=== PATIENT | male | born 1955 | race Caucasian/White ===

== ENCOUNTER 2017-01-22 01:43 | Emergency (ER) | payer OTHER ==
[~2017-01-22] VITALS: Ht 165.1 cm; Wt 74.5 kg
[~2017-01-22 01:43] MED LIST: HYDR-906 PO; LEVO750T25 PO
[2017-01-22 02:05] VITALS: Ht 165.1 cm; Wt 74.5 kg
[2017-01-22] MEDS ORDERED: morphine 4 MG/ML VIAL IV STA (04:36)
[2017-01-22] MEDS ORDERED: SOD CHLORIDE 0.9% 500 ML IV STA (04:36)
[2017-01-22] MEDS ORDERED: ONDANSETRON 4 MG INJ IV STA (04:36)
[2017-01-22 04:46] LABS: ADD SCAN DIFF NO
[2017-01-22 04:52] LABS: BASOPHIL # 0.1 10^3/ul (0.0-0.1); BASOPHILS % 0.7 % (0.0-2.0); EOSINOPHILS # 0.1 10^3/ul (0.0-0.5); EOSINOPHILS % 1.4 % (0.0-7.0); HEMATOCRIT 43.4 % (42.0-52.0); HEMOGLOBIN 14.8 g/dl (14.0-18.0); LYMPHOCYTES # 2.2 10^3/ul (0.8-2.9); LYMPHOCYTES % 26.1 % (15.0-51.0); MEAN CORPUSCULAR HEMOGLOBIN 30.4 pg (29.0-33.0); MEAN CORPUSCULAR HGB CONC 34.1 g/dl (32.0-37.0); MEAN CORPUSCULAR VOLUME 89.1 fl (82.0-101.0); MEAN PLATELET VOLUME 11.2 fl (7.4-10.4); MONOCYTE # 0.7 10^3/ul (0.3-0.9); MONOCYTES % 7.8 % (0.0-11.0); NEUTROPHIL # 5.5 10^3/ul (1.6-7.5); NEUTROPHILS % 63.6 % (39.0-77.0); PLATELET COUNT 188 10^3/UL (140-415); RED BLOOD COUNT 4.87 10^6/ul (4.70-6.10); RED CELL DISTRIBUTION WIDTH 12.2 % (11.5-14.5); WHITE BLOOD COUNT 8.6 10^3/ul (4.8-10.8)
[2017-01-22 05:07] LABS: ALBUMIN 4.1 g/dl (3.3-4.9); POTASSIUM 4.2 mmol/L (3.5-5.1)
[2017-01-22 05:10] LABS: ALBUMIN/GLOBULIN RATIO 1.2; BILIRUBIN,INDIRECT 0.3 mg/dl (0-1.1); BILIRUBIN,TOTAL 0.3 mg/dl (0.2-1.3); CALCIUM 9.4 mg/dl (8.4-10.2); CREATININE 0.85 mg/dl (0.61-1.24); TOTAL PROTEIN 7.5 g/dl (6.1-8.1)
[2017-01-22] MEDS ORDERED: ONDA4TAB14 PO (05:57)
[2017-01-22] MEDS ORDERED: TRAM50TA2 PO (05:57)
--- NOTE | 2017-01-22 05:57 | ERD ---
ER Documentation Chief Complaint Date/Time DATE: 01/22/17 TIME: 05:56 Chief Complaint SEVERE ABDOMINAL PAIN WITHOUT N/V/D X 2 HOURS HPI 61-year-old with severe abdominal pain without nausea or diarrhea the past 2 hours. Patient has history of gallstones. No fevers no chills. No other current complaints. Pain is mild to moderate in intensity. ROS All systems reviewed and are negative except as per history of present illness. Medications Home Meds Active Scripts Hydrocodone/Acetaminophen ([place] 5-325 Tablet) 1 Each Tablet, 1 TAB PO Q6H Y for PAIN, #7 TAB Prov:NGUYEN SWEET 10/26/16 Levofloxacin* (Levaquin*) 750 Mg Tablet, 750 MG PO DAILY for 5 Days, TAB Prov:MICKIHANNAHNGUYEN 10/26/16 Allergies Allergies: Coded Allergies: No Known Allergy (Unverified , 10/26/16) PMhx/Soc History of Surgery: No Hx Neurological Disorder: No Hx Respiratory Disorders: No Hx Cardiac Disorders: No Hx Psychiatric Problems: No Hx Miscellaneous Medical Probl: No Hx Alcohol Use: No Hx Substance Use: No Hx Tobacco Use: No Smoking Status: Never smoker Physical Exam Vitals Vital Signs Date Time Temp Pulse Resp B/P Pulse Ox O2 Delivery O2 Flow Rate FiO2 01/22/17 04:36 97.9 65 12 156/68 96 Room Air 01/22/17 02:05 97.9 77 20 169/80 95 Physical Exam Const: [] Head: Atraumatic Eyes: Normal Conjunctiva ENT: Normal External Ears, Nose and Mouth. Neck: Full range of motion..~ No meningismus. Resp: Clear to auscultation bilaterally Cardio: Regular rate and rhythm, no murmurs Abd: Soft, non tender, non distended. Normal bowel sounds Skin: No petechiae or rashes Back: No midline or flank tenderness Ext: No cyanosis, or edema Neur: Awake and alert Psych: Normal Mood and Affect Result Diagram: 01/22/1742901/22/17429 Results 24 hrs Laboratory Tests Test 01/22/17 04:30 Alanine Aminotransferase (ALT/SGPT) 35IU/L Albumin 4.1g/dl Albumin/Globulin Ratio 1.20 Alkaline Phosphatase 77IU/L Anion Gap 16 Aspartate Amino Transf (AST/SGOT) 50IU/L Basophils # 0.110^3/ul Basophils % 0.7% Blood Urea Nitrogen 22mg/dl Calcium Level 9.4mg/dl Carbon Dioxide Level 28mmol/L Chloride Level 105mmol/L Creatinine 0.85mg/dl Direct Bilirubin 0.00mg/dl Eosinophils # 0.110^3/ul Eosinophils % 1.4% Globulin 3.40g/dl Glucose Level 130mg/dl Hematocrit 43.4% Hemoglobin 14.8g/dl Indirect Bilirubin 0.3mg/dl Lipase 65U/L Lymphocytes # 2.210^3/ul Lymphocytes % 26.1% Mean Corpuscular Hemoglobin 30.4pg Mean Corpuscular Hemoglobin Concent 34.1g/dl Mean Corpuscular Volume 89.1fl Mean Platelet Volume 11.2fl Monocytes # 0.710^3/ul Monocytes % 7.8% Neutrophils # 5.510^3/ul Neutrophils % 63.6% Nucleated Red Blood Cells # 0.010^3/ul Nucleated Red Blood Cells % 0.0/100WBC Platelet Count 71941^3/UL Potassium Level 4.2mmol/L Red Blood Count 4.8710^6/ul Red Cell Distribution Width 12.2% Sodium Level 145mmol/L Total Bilirubin 0.3mg/dl Total Protein 7.5g/dl White Blood Count 8.610^3/ul Current Medications Medications (Trade) Dose Ordered Sig/Anna Route PRN Reason Start Time Stop Time Status Last Admin Dose Admin Sodium Chloride (NS) 500 ml @ 500 mls/hr Q1H STAT IV 01/22/17 04:36 01/22/17 05:35 DC 01/22/17 04:47 Morphine Sulfate (morphine) 4 mg ONCE STAT IV 01/22/17 04:36 01/22/17 04:38 DC 01/22/17 04:47 Ondansetron HCl (Zofran Inj) 4 mg ONCE STAT IV 01/22/17 04:36 01/22/17 04:38 DC 01/22/17 04:47 Procedures/MDM CBC: [no e/o of systemic infection or severe anemia] CMP: [no e/o severe acidosis, alkalosis, renal failure, diabetic ketoacidosis, liver disease] Lipase: [no e/o pancreatitis] PT/INR: [normal coagulation] Urine: [no e/o acute infection or hematuria] Medical decision-making: Patient comes in with abdominal pain nonspecific etiology. He does have evidence of gallstones. At this point is clinically stable. He will be discharged home with tramadol and Zofran. Follow-up in 8 hours for serial abdominal exams. Departure Diagnosis: Primary Impression: Abdominal pain Abdominal location: epigastric Qualified Code: R10.13 - Epigastric pain Condition: Stable STEFANY VAZQUEZ Jan 22, 2017 05:57
--- NOTE | 2017-01-22 05:58 | RADRPT ---
PROCEDURE: CT ABDOMEN/PELVIS WITHOUT CONTRAST CLINICAL INDICATION: 61-year-old male with abdominal pain. TECHNIQUE: The study was performed utilizing a GE [employer] VCT 64-slice CT scanner. Direct axia l sections were obtained through the abdomen and pelvis without the use of intravenous contrast mate rial. Sagittal and coronal reformations were obtained. Automated exposure control and iterative graham nstruction techniques were utilized for this examination. The images were reviewed [facility]. CTD/vol = 11.9 mGy; Total Exam DLP = 749.2 mGy-cm. COMPARISON: CT abdomen/pelvis October 26, 2016. FINDINGS: There is mild linear subsegmental atelectasis within the lung bases. There is a small bleb identifi ed within the right lung base measuring 9 x 8 mm on axial image 3-41. There is no evidence for sign ificant pleural effusion. The liver has a normal size and contour without focal areas of abnormal d ensity. No intrahepatic nor extrahepatic biliary ductal dilatation is seen. The gallbladder is diste nded but without evidence for calcified stones, significant wall thickening or pericholecystic fluid .. The pancreas is without areas of abnormal attenuation. The spleen is identified and has a normal size without abnormal density. The adrenal glands are unremarkable. The kidneys are without abnorma l density. No hydroureteronephrosis nor nephroureterolithiasis is evident. The urinary bladder conta ins urine. The stomach is distended with fluid. There are dilated fluid-filled loops of proximal sm all bowel with decompressed distal small bowel however there is mild fecalization. There is mild retained stool identified within the colon without obstruction. Multiple diverticula seen throughou t the colon most prominently within the descending and colon without surrounding inflammatory change s. The appendix is visualized and is without abnormal thickening or surrounding inflammatory reacti on. The prostate is mildly enlarged measuring approximately 4.6 x 4.2 x 4.5 cm. There is a nonspecif ic inferior pelvic calcific density measuring approximately 10 x16 x 14 mm without interval change. There is a small left inguinal hernia containing fat. There is no significant pelvic free fluid. Th e aortoiliac vessels are mildly calcified but without aneurysmal dilatation. Mild degenerative cardenas es are seen throughout the spine. IMPRESSION: 1. Mild linear bibasilar subsegmental atelectasis. 2. Distended stomach and mildly dilated fluid-filled loops of proximal small bowel. This may repre sent a gastroenteritis. Other possibilities include transient small bowel intussusception. 3. Mild fecalization distal small bowel with retained colonic stool without obstruction. 4. Colonic diverticulosis. 5. No CT evidence for appendicitis. 6. Small left inguinal hernia containing fat. 7. Vascular calcifications. 8. Degenerative changes within the spine. .Arnoldo Carpenter MD, MD Date Time Electronically viewed and signed by .Arnoldo Carpenter MD, on 01/22/2017 05:58 .M/
[2017-01-22 06:28] VITALS: BP 158/68; PULSE 60; RESP 16; TEMP 97.9
[2017-01-22] MEDS ORDERED: OXYC-279 PO (06:36)
[2017-01-22 06:46] LABS: ADD UMIC NO; URINE BILIRUBIN (Dip) NEGATIVE (NEGATIVE); URINE BLOOD (Dip) NEGATIVE (NEGATIVE); URINE COLOR LT. YELLOW (YELLOW); URINE GLUCOSE (Dip) NEGATIVE (NEGATIVE); URINE KETONES (Dip) NEGATIVE (NEGATIVE); URINE LEUKOCYTE ESTERASE (Dip) NEGATIVE (NEGATIVE); URINE NITRITE (Dip) NEGATIVE (NEGATIVE); URINE TOTAL PROTEIN (Dip) NEGATIVE (NEGATIVE); URINE UROBILINOGEN (Dip) 0.2 E.U./dL (0.1-1.0)
== END 2017-01-22 06:52 | disposition home or self-care (01) ==
LOC: E/R 01:43
DX: R10.13 Epigastric pain (principal)
CPT/HCPCS: 36415; 74176; 80053; 81003; 83690; 85025; 96374; 96375; J2270; J2405; J7040; Z7502; Z7610

== ENCOUNTER 2017-01-22 16:24 | Emergency (ER) | payer OTHER ==
[~2017-01-22] VITALS: Wt 72.0 kg
[~2017-01-22 16:24] MED LIST changes: +ONDA4TAB14 PO; +OXYC-279 PO; +TRAM50TA2 PO
--- NOTE | 2017-01-22 17:33 | RADRPT ---
PROCEDURE: XR Chest. CLINICAL INDICATION: Abdomen pain. TECHNIQUE: Single frontal view. COMPARISON: 12/01/2007. FINDINGS: The lungs are clear. The heart size is normal. There is no pleural effusion. There is no pneumothorax. IMPRESSION: 1. Normal chest radiograph. RPTAT: QQ .Abdulaziz Kramer MD, MD Date Time Electronically viewed and signed by .Abdulaziz Kramer MD, MD on 01/22/2017 17:33 .R/
--- NOTE | 2017-01-22 17:35 | RADRPT ---
PROCEDURE: XR Abdomen. CLINICAL INDICATION: Abdomen pain. TECHNIQUE: Two views. AP supine and AP erect. COMPARISON: CT scan of the abdomen and pelvis dated 01/22/2017 FINDINGS: There is no free air. The bowel gas pattern is normal. There is no evidence of obstruction. There are no abnormal calcifications overlying the urinary tracts. There are mild degenerative changes of the spine. There is a benign calcification centrally in the pelvis. IMPRESSION: 1. Mild degenerative changes of the spine. 2. No evidence of obstruction. RPTAT: QQ .Abdulaziz Kramer MD, MD Date Time Electronically viewed and signed by .Abdulaziz Kramer MD, MD on 01/22/2017 17:35 .R/
[2017-01-22 17:39] VITALS: BP 127/72; PULSE 70; RESP 18; TEMP 97.2
--- NOTE | 2017-01-22 17:40 | ERD ---
ER Documentation Chief Complaint Date/Time DATE: 01/22/17 TIME: 17:38 Chief Complaint GEN ABD PAIN FOR THE PAST FEW DAYS. WAS SEEN IN ER LAST NIGHT. NOT BETTER HPI This 61-year-old male presents to the ER for re- evaluation of abdominal pain. This patient was seen in the emergency room last night and was told to come back in 8 hours for reevaluation. The patient states that his pain is improved drastically. He is passing gas, is using the restroom, has not vomited. The patient states that he did get a prescription for pain medicine however he has not filled it. ROS All systems reviewed and are negative except as per history of present illness. Medications Home Meds Active Scripts Oxycodone HCl/Acetaminophen (Percocet 5-325 mg Tablet) 1 Each Tablet, 1 EACH PO TID for PAIN, #15 TAB Prov:RINA JENSEN MD 01/22/17 Ondansetron (Ondansetron Odt) 4 Mg Tab.rapdis, 4 MG PO Q6H Y for NAUSEA AND/OR VOMITING, #10 TAB Prov:STEFANY VAZQUEZ 01/22/17 Tramadol HCl (Tramadol HCl) 50 Mg Tablet, 50 MG PO Q4 Y for PAIN, #20 TAB Prov:STEFANY VAZQUEZ 01/22/17 Hydrocodone/Acetaminophen ([place] 5-325 Tablet) 1 Each Tablet, 1 TAB PO Q6H Y for PAIN, #7 TAB Prov:NGUYEN SWEET 10/26/16 Levofloxacin* (Levaquin*) 750 Mg Tablet, 750 MG PO DAILY for 5 Days, TAB Prov:NGUYEN SWEET 10/26/16 Allergies Allergies: Coded Allergies: No Known Allergy (Unverified , 10/26/16) PMhx/Soc History of Surgery: No Hx Neurological Disorder: No Hx Respiratory Disorders: No Hx Cardiac Disorders: No Hx Psychiatric Problems: No Hx Miscellaneous Medical Probl: No Hx Alcohol Use: No Hx Substance Use: No Hx Tobacco Use: No Physical Exam Vitals Vital Signs Date Time Temp Pulse Resp B/P Pulse Ox O2 Delivery O2 Flow Rate FiO2 01/22/17 16:31 98.9 75 21 117/58 97 Physical Exam Const: No acute distress Head: Atraumatic Eyes: Normal Conjunctiva ENT: Normal External Ears, Nose and Mouth. Neck: Full range of motion..~ No meningismus. Resp: Clear to auscultation bilaterally Cardio: Regular rate and rhythm, no murmurs Abd: Soft, non tender, non distended. Normal bowel sounds in all 4 quadrants Skin: No petechiae or rashes Back: No midline or flank tenderness Ext: No cyanosis, or edema Neur: Awake and alert Psych: Normal Mood and Affect Procedures/MDM Chest X-ray 1V Interpreted by me: Soft Tissue: No acute abnormalities Bones: No acute abnormalities Mediastinum/Cardiac Silhouette/Lungs: [No acute abnormalities] X-ray Abdomen 1V Interpreted by me: Free Air: [None] Bowel Gas: [Nonspecific] Soft Tissue: [Normal] This 61-year-old presents to the ER for evaluation of abdominal pain. The patient was seen in the emergency room in the morning and was told her come back for reevaluation. The patient's pain is improved. He is hemodynamically stable, no peritoneal signs. X-ray does not reveal any obstructions. This patient was given 1 tramadol in the emergency room as he has not filled his prescriptions for pain medicine yet. He will be discharged home at this time. Departure Diagnosis: Primary Impression: Abdominal pain Condition: Stable ASHLEY ADLER DO Jan 22, 2017 17:40
[2017-01-22] MEDS ORDERED: traMADol 50 MG TAB PO ONE (18:00)
== END 2017-01-22 17:50 | disposition home or self-care (01) ==
LOC: E/R 16:24
DX: R10.84 Generalized abdominal pain (principal)
CPT/HCPCS: 71010; 74010; Z7502; Z7610

== ENCOUNTER 2017-04-09 18:44 | Emergency (ER) | payer OTHER ==
[~2017-04-09] VITALS: Ht 154.9 cm; Wt 75.0 kg
[2017-04-09 18:59] VITALS: Ht 154.9 cm; Wt 75.0 kg
[2017-04-09] MEDS ORDERED: KETOROLAC 15 MG INJ IM STA (19:26)
--- NOTE | 2017-04-09 19:26 | ERD ---
ER Documentation Chief Complaint Date/Time DATE: 04/09/17 TIME: 19:23 Chief Complaint bilateral thigh pain and back pain x 4 days HPI This pleasant 61-year-old male patient presents to emergency department for evaluation of back pain radiating to his thighs. Patient is Estonian-speaking, and demand translation provided. Patient reports four-day history of bilateral thigh pain, back pain, described as burning sharp and constant. Patient denies any injury, history of hernia, alteration in bowel or bladder. Patient reports no position of comfort, pain is felt lying, sitting, and ambulating, patient has tried [id number] ibuprofen and Naprosyn with little relief of symptoms. Patient denies dysuria, hematuria, or fecal incontinence. Patient has no history of osteoarthritis, or spinal stenosis ROS All systems reviewed and are negative except as per history of present illness. Medications Home Meds Active Scripts Oxycodone HCl/Acetaminophen (Percocet 5-325 mg Tablet) 1 Each Tablet, 1 EACH PO TID for PAIN, #15 TAB Prov:RINA JENSEN MD 01/22/17 Ondansetron (Ondansetron Odt) 4 Mg Tab.rapdis, 4 MG PO Q6H Y for NAUSEA AND/OR VOMITING, #10 TAB Prov:STEFANY VAZQUEZ 01/22/17 Tramadol HCl (Tramadol HCl) 50 Mg Tablet, 50 MG PO Q4 Y for PAIN, #20 TAB Prov:STEFANY VAZQUEZ 01/22/17 Hydrocodone/Acetaminophen ([place] 5-325 Tablet) 1 Each Tablet, 1 TAB PO Q6H Y for PAIN, #7 TAB Prov:NGUYEN SWEET 10/26/16 Levofloxacin* (Levaquin*) 750 Mg Tablet, 750 MG PO DAILY for 5 Days, TAB Prov:NGUYEN SWEET 10/26/16 Allergies Allergies: Coded Allergies: No Known Allergy (Unverified , 10/26/16) PMhx/Soc Medical and Surgical Hx: pt denies Medical Hx, pt denies Surgical Hx History of Surgery: No Hx Neurological Disorder: No Hx Respiratory Disorders: No Hx Cardiac Disorders: No Hx Psychiatric Problems: No Hx Miscellaneous Medical Probl: No Hx Alcohol Use: No Hx Substance Use: No Hx Tobacco Use: No Smoking Status: Never smoker Physical Exam Vitals Vital Signs Date Time Temp Pulse Resp B/P Pulse Ox O2 Delivery O2 Flow Rate FiO2 04/09/17 18:59 98.0 79 18 156/73 98 Physical Exam Const: No acute distress Head: Atraumatic Eyes: Normal Conjunctiva, PERRLA, EOMI ENT: Normal External Ears, Nose and Mouth. Neck: Resp: Chest rise and fall symmetrically, no respiratory Cardio: Abd: Soft, non tender, non distended. Skin: No petechiae or rashes Back Exam: Skin: No bruising or rash Compartments: Soft Motor: Normal flexion and extension of bilateral hip/knee Sensation: Intact to light touch throughout Bones: No midline TTP Ext: Neur: Awake and alert Psych: Normal Mood and Affect Results 24 hrs Laboratory Tests Test 04/09/17 19:40 Urine Color LT. YELLOW Urine Clarity CLEAR Urine pH 6.0 Urine Specific Reading <=1.005 Urine Ketones NEGATIVE Urine Nitrite NEGATIVE Urine Bilirubin NEGATIVE Urine Urobilinogen 0.2 E.U./dL Urine Leukocyte Esterase NEGATIVE Urine Hemoglobin NEGATIVE Urine Glucose NEGATIVE% Urine Total Protein NEGATIVE Current Medications Medications (Trade) Dose Ordered Sig/Anna Route PRN Reason Start Time Stop Time Status Last Admin Dose Admin Ketorolac Tromethamine (Toradol) 15 mg ONCE STAT IM 04/09/17 19:26 04/09/17 19:29 DC 04/09/17 19:34 Diazepam (Valium) 5 mg ONCE ONCE PO 04/09/17 19:30 04/09/17 19:31 DC 04/09/17 19:33 Procedures/MDM PROCEDURE: X-ray lumbar spine. CLINICAL INDICATION: Pain in the lumbar spine. TECHNIQUE: 3 views lumbar spine. COMPARISON: None. FINDINGS: Disk space narrowing is mild at the L4-5 and L5-S1 levels. Anterior endplate osteophytes at the L2 through S1 levels. Posterior facet degenerative changes at the L4-5 and L5-S1 levels. Transitional vertebral anatomy at S1 with lumbarization of the vertebral body. Degenerative changes of the lower thoracic spine. No evident acute fracture. IMPRESSION: Degenerative changes, without acute fracture. Physician Thong Date Time Electronically viewed and signed by Physician Thong on 04/09/2017 20:45 This pleasant 61-year-old male patient presents to emergency department for evaluation of low back pain radiating to groin and down thighs. Cauda equina, herniated disc, fracture is not suspected. Patient is well appearing, ambulating without difficulty or limp. Urinalysis negative for evidence of infection, no leukocytosis or microscopic hematuria, nitrates negative, x-ray findings document disc space narrowing is mild at L4-5 and L5-S1 levels anterior endplate osteophytes in the L2 through S1 levels. Posterior facet degenerative changes at L4-5 and L5-S1 levels. Transitional vertebrae and anatomy at S1 with lumbarization of the vertebral body. Degenerative changes of the lower thorax spine. Final impression is degenerative changes without acute fracture. Patient receives Toradol and Valium in emergency department, discharged home with Naprosyn 500 mg 1 tab p.o. twice daily 10 days. Short dose of Valium for muscle relaxant. Patient to follow-up with primary care physician for referral to physical therapy. Return to emergency department for alteration in bowel or bladder, difficulty ambulating. I feel the patient is stable for discharge at this time and outpatient management with primary care physician as outlined.. I have discussed results, examination findings, the treatment plan with the patient and family present prior to discharge. Indications for emergent reevaluation, side effects of medication were also discussed. All questions were answered. Patient verbalizes understanding and agrees with plan of care. Departure Diagnosis: Primary Impression: Degenerative disc disease at L5-S1 level Additional Impression: Degenerative joint disease (DJD) of lumbar spine Spinal osteoarthritis complication: with radiculopathy Qualified Code: M47.26 - Osteoarthritis of spine with radiculopathy, lumbar region Condition: Good Patient Instructions: Degenerative Disk Disease Additional Instructions: Thank you for for coming to [facility] for your care today. Please ask your nurse or provider if you have questions about your care today and do not leave until all your questions have been answered. Please use any medications given as directed and follow-up with your doctor (or the doctor you were referred to) in the next 2-3 days. If you do not have a primary care doctor you may follow up at the [facility] (listed below). You may also use motrin and tylenol as needed for fever and/or pain unless instructed otherwise by your provider or nurse. Indications for more urgent follow-up have been discussed, but you may return to the Emergency Department at ANY time for any worrisome or worsening symptoms. If you have abdominal pain, please know that no test or exam you received is perfect and you should follow up within 8 hours for continued pain. If you had any imaging studies today, such as an X-Ray or CT Scan, these studies will be reviewed later by a radiologist. You will be called if there are important findings that were not identified today, so make sure the contact information you provided at registration is correct. If you received any narcotic pain control medicine today, such as Vicodin, Morphine or Dilaudid, your coordination and judgment may be affected for a number of hours. Please do not drive or operate heavy machinery, and you may want someone to assist you at home. If you were given a prescription for narcotic medication, be aware that it is very addictive- use sparingly and only if necessary. EMMANUEL CORTEZ April 09, 2017 19:26
[2017-04-09] MEDS ORDERED: DIAZEPAM 5 MG TAB PO ONE (19:30)
[2017-04-09 19:53] LABS: ADD UMIC NO; URINE BILIRUBIN (Dip) NEGATIVE (NEGATIVE); URINE BLOOD (Dip) NEGATIVE (NEGATIVE); URINE COLOR LT. YELLOW (YELLOW); URINE GLUCOSE (Dip) NEGATIVE (NEGATIVE); URINE KETONES (Dip) NEGATIVE (NEGATIVE); URINE LEUKOCYTE ESTERASE (Dip) NEGATIVE (NEGATIVE); URINE NITRITE (Dip) NEGATIVE (NEGATIVE); URINE TOTAL PROTEIN (Dip) NEGATIVE (NEGATIVE); URINE UROBILINOGEN (Dip) 0.2 E.U./dL (0.1-1.0)
--- NOTE | 2017-04-09 20:46 | RADRPT ---
PROCEDURE: X-ray lumbar spine. CLINICAL INDICATION: Pain in the lumbar spine. TECHNIQUE: 3 views lumbar spine. COMPARISON: None. FINDINGS: Disk space narrowing is mild at the L4-5 and L5-S1 levels. Anterior endplate osteophytes at the L2 through S1 levels. Posterior facet degenerative changes at the L4-5 and L5-S1 levels. Transitional v ertebral anatomy at S1 with lumbarization of the vertebral body. Degenerative changes of the lower thoracic spine. No evident acute fracture. IMPRESSION: Degenerative changes, without acute fracture. RPTAT: [facility] Physician Thong Date Time Electronically viewed and signed by Physician Thong on 04/09/2017 20:45 RS/
[2017-04-09] MEDS ORDERED: NAPR-260 PO (21:00)
[2017-04-09] MEDS ORDERED: DIAZ-90 PO (21:00)
== END 2017-04-09 21:08 | disposition home or self-care (01) ==
LOC: FTE 18:44
DX: M47.26 Other spondylosis with radiculopathy, lumbar region (principal)
CPT/HCPCS: 72100; 81003; 96372; J1885; Z7502; Z7610

== ENCOUNTER 2017-11-13 12:53 | Emergency (ER) | END 2017-11-13 14:57 | disposition home or self-care (01) ==

== ENCOUNTER 2018-03-10 02:46 | Emergency (ER) | END 2018-03-10 08:56 | disposition home or self-care (01) ==